=== PATIENT | female | born 1955 | race Caucasian/White ===

== ENCOUNTER → 2016-11-10 | Outpatient (CLI) | payer OTHER ==
[~2016-11-10] MED LIST: CLEOCIN HC150 MG/CAP PO; GENTAMICIN180 MG/502 NS; HYZAAR 12.5 MG-1 TAB PO
== END ==
LOC: MC.RAD 10:59
DX: Z12.31 Encounter for screening mammogram for malignant neoplasm of breast (principal)

== ENCOUNTER → 2018-11-30 | Outpatient (CLI) | payer MEDICARE | LOC: MC.RAD 10-30 10:15 | DX: Z12.31 Encounter for screening mammogram for malignant neoplasm of breast (principal) ==